=== PATIENT | female | born 1965 | race Caucasian/White ===

== ENCOUNTER → 2016-11-06 | Outpatient (CLI) | payer BC ==
--- NOTE | 2016-11-11 09:18 | MM ---
Reason for exam: screening (asymptomatic). Last mammogram was performed 2 years and 4 months ago. Physical Findings: A clinical breast exam by your physician is recommended on an annual basis and results should be correlated with mammographic findings. MG Screening Mammo w CAD Bilateral CC and MLO view(s) were taken. Prior study comparison: July 04, 2014, bilateral MG screening mammo w CAD. January 13, 2010, bilateral digital screening mammogram. The breast tissue is heterogeneously dense. This may lower the sensitivity of mammography. No significant changes when compared with prior studies. ASSESSMENT: Benign, BI-RAD 2 RECOMMENDATION: Routine screening mammogram of both breasts in 1 year.
== END | disposition home or self-care (01) ==
LOC: RADMAMWWP 13:20
PROVIDERS: ATTEND Family Medicine
DX: Z12.31 Encounter for screening mammogram for malignant neoplasm of breast (principal)

== ENCOUNTER → 2017-02-03 | Outpatient (CLI) | payer BC ==
--- NOTE | 2017-02-04 07:07 | XR ---
EXAMINATION TYPE: XR finger LT DATE OF EXAM: 02/03/2017 4:17 PM COMPARISON: NONE HISTORY: Pain TECHNIQUE: Two views are submitted. FINDINGS: The osseous structures are intact. There is perinephric. No erosive changes. Mild narrowing first MCP joint. IMPRESSION: 1. No definite acute fracture or dislocation if symptoms persist, follow-up study in 7 to 10 days wo uld be suggested 2. Arthropathy of the first MCP and carpometacarpal joint correlate with MRI as clinically warranted.
--- NOTE | 2017-02-04 07:08 | XR ---
EXAMINATION TYPE: XR toes LT DATE OF EXAM: 02/03/2017 4:17 PM COMPARISON: NONE HISTORY: Pain TECHNIQUE: 2 views of the left toes are submitted. FINDINGS: There is near complete loss of joint space involving the first MTP with hypertrophic change . No acute fracture. No dislocation. Remaining osseous structures intact. IMPRESSION: 1. 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
== END ==
LOC: RADXRYALE 15:49
PROVIDERS: ATTEND Family Medicine
DX: M19.042 Primary osteoarthritis, left hand (principal); M19.072 Primary osteoarthritis, left ankle and foot

== ENCOUNTER → 2017-09-10 | Outpatient (CLI) | payer BC ==
--- NOTE | 2017-09-10 15:28 | US ---
EXAMINATION TYPE: US transvaginal DATE OF EXAM: 09/10/2017 COMPARISON: 01/13/2010 CLINICAL HISTORY: D25.9 Leiomyoma of uterus,N84.1Cervixpolyp,N85.2Hy. History of uterine fibroids TECHNIQUE: Transvaginal (TV) Date of LMP: 3 years ago EXAM MEASUREMENTS: Uterus: 13.8 x 8.2 x 9.7 cm Endometrial Stripe: 0.6 cm Right Ovary: 4.6 x 2.8 x 2.4 cm Left Ovary: 3.1 x 2.6 x 2.4 cm 1. Uterus: Anteverted enlarged. Heterogeneous with multiple hypoechoic areas noted, largest = 8.6 x 7.0 x 7.6cm. Hypoechoic area cervix = 2.5 x 2.4 x 2.1cm 2. Endometrium: appears wnl 3. Right Ovary: appears wnl 4. Left Ovary: cystic area = 1.8 x 2.1 x 1.7cm 5. Bilateral Adnexa: appears wnl 6. Posterior cul-de-sac: wnl IMPRESSION: 1. Enlarged uterus with heterogeneous myometrium and multiple hypoechoic nodules the largest measurin g 8.6 cm suggestive of a uterine fibroid. 2. Nonspecific hypoechoic area within the cervix and endocervical region measuring 2.5 cm. Correlate clinically to exclude endocervical lesion. 3. complex cyst within the left ovary measuring 1.8 cm x 2.1 cm. Differential includes hemorrhagic cy st or endometrioma. Appears reduced in size from the previous exam of 3.3 x 3.4 cm.
== END | disposition home or self-care (01) ==
LOC: RADUSWWP 14:34
PROVIDERS: ATTEND Family Medicine
DX: N85.2 Hypertrophy of uterus (principal); N83.202 Unspecified ovarian cyst, left side; N85.8 Other specified noninflammatory disorders of uterus
CPT/HCPCS: 76830

== ENCOUNTER → 2018-06-21 | Outpatient (CLI) | payer BC ==
--- NOTE | 2018-06-21 16:02 | CT ---
EXAMINATION TYPE: CT iac wo con DATE OF EXAM: 06/21/2018 COMPARISON: None HISTORY: Hearing loss and ear infections. CT DLP: 228mGycm Automated exposure control for dose reduction was used. FINDINGS: The external auditory canals are patent bilaterally. The middle ear ossicles are symmetric and unremarkable. No suspicious soft tissue densities evident. The scutum is preserved bilaterally. The cochlea and the semicircular canals are symmetric and unre markable. The internal auditory canals are symmetrical. No expansion or erosion is evident. Vestibular aqueduct and foramen lacerum are unremarkable. Temporomandibular joints are maintained bi laterally. Some minimal fluid is within the inferior most left mastoid air cells. IMPRESSION: 1. No suspicious changes internal auditory canals. 2. Minimal fluid-filled left mastoid air cells. Correlate with the patient's symptoms.
== END | disposition home or self-care (01) ==
LOC: RADCTMAIN 15:02
PROVIDERS: ATTEND Otolaryngology
DX: H91.93 Unspecified hearing loss, bilateral (principal); H71.93 Unspecified cholesteatoma, bilateral; H70.93 Unspecified mastoiditis, bilateral
CPT/HCPCS: 70480

== ENCOUNTER → 2018-06-29 | Outpatient (CLI) | payer BC | END | disposition home or self-care (01) | LOC: LABWHC1 08:45 | PROVIDERS: ATTEND Otolaryngology | DX: J30.89 Other allergic rhinitis (principal) | CPT/HCPCS: 36415 ==

== ENCOUNTER → 2018-11-18 | Outpatient (CLI) | payer BC ==
[2018-11-18 11:16] LABS: Basophils % (A) 0 %; Eosinophils # (A) 0.2 k/uL (0-0.7); Eosinophils % (A) 3 %; HCT 45.2 % (34.0-46.0); HGB 14.1 gm/dL (11.4-16.0); Lymphocytes # (A) 1.8 k/uL (1.0-4.8); Lymphocytes % (A) 28 %; MCH 29.8 pg (25.0-35.0); MCHC 31.2 g/dL (31.0-37.0); MCV 95.5 fL (80.0-100.0); Mean Platelet Volume 5.9; Monocytes # (A) 0.6 k/uL (0-1.0); Monocytes % (A) 10 %; Neutrophils # (A) 3.8 k/uL (1.3-7.7); Neutrophils % (A) 58 %; Platelet Count 311 k/uL (150-450); RBC 4.73 m/uL (3.80-5.40); RDW 12.6 % (11.5-15.5); WBC 6.5 k/uL (3.8-10.6)
[2018-11-18 11:26] LABS: Anion Gap 7 mmol/L; Blood Urea Nitrogen 20 mg/dL (7-17); Calcium 10.1 mg/dL (8.4-10.2); Carbon Dioxide 27 mmol/L (22-30); Chloride 105 mmol/L (98-107); Glucose 97 mg/dL (74-99); Potassium 4.8 mmol/L (3.5-5.1); Sodium 139 mmol/L (137-145)
== END | disposition home or self-care (01) ==
LOC: LABPAT 10:27
PROVIDERS: ATTEND Obstetrics & Gynecology
DX: Z01.818 Encounter for other preprocedural examination (principal); Z01.812 Encounter for preprocedural laboratory examination
CPT/HCPCS: 80048; 85025; 86850; 86900; 86901; 93005

== ENCOUNTER → 2018-11-25 | Outpatient (CLI) | payer BC ==
--- NOTE | 2018-11-28 11:57 | MM ---
Reason for exam: screening (asymptomatic). Last mammogram was performed 2 years and 1 month ago. History: Patient is postmenopausal. Taking estrogen for 10 years. Taking progesterone for 10 years. Physical Findings: A clinical breast exam by your physician is recommended on an annual basis and results should be correlated with mammographic findings. MG 3D Screening Mammo W/Cad Bilateral CC and MLO view(s) were taken. Prior study comparison: November 06, 2016, bilateral MG screening mammo w CAD. July 04, 2014, bilateral MG screening mammo w CAD. The breast tissue is heterogeneously dense. This may lower the sensitivity of mammography. No suspicious abnormality. No significant changes when compared with prior studies. ASSESSMENT: Negative, BI-RAD 1 RECOMMENDATION: Routine screening mammogram of both breasts in 1 year.
== END | disposition home or self-care (01) ==
LOC: RADMAMWWP 15:11
PROVIDERS: ATTEND Family Medicine
DX: Z12.31 Encounter for screening mammogram for malignant neoplasm of breast (principal)
CPT/HCPCS: 77063; 77067

== ENCOUNTER 2018-11-28 05:44 | Inpatient (IN) | payer BC ==
--- NOTE | 2018-11-27 19:57 | P.HPOB ---
History of Present Illness H&P Date: 11/27/18 Chief Complaint: Uterine fibroids, pelvic pain This is a 52-year-old female 1 para 1 who presents for total abdominal hysterectomy with bilateral salpingo-oophorectomy secondary to large uterine fibroids and pelvic pressure and pain. She complains of approximate 6 month history of pelvic pressure and held thick pain in the left pelvic area. She denies any radiation. She states it is worse when she gets up in the morning to urinate but is better after she urinates. She occasionally has urinary urgency. Her pelvic ultrasound shows uterus measuring 13.8 x 8.2 x 9.7 cm with endometrial thickness of 6 mm and a large uterine fibroid measuring 8.6 x 7 x 7.6 cm. Left ovary showed a small 2 cm cyst. The fibroids are consistent in size from her previous ultrasound in 2015. She would like definitive surgical treatment for this problem and would like her ovaries removed in addition. Obstetrical history: . History of 1 vaginal delivery. Gynecologic history: No history of sexual transmitted diseases. Her last Pap smear was within normal limits. Social history: She is . 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 Review of Systems Constitutional: Denies chills, Denies fever Eyes: denies blurred vision, denies pain Ears, nose, mouth and throat: Denies headache, Denies sore throat Cardiovascular: Denies chest pain, Denies shortness of breath Respiratory: Denies cough Gastrointestinal: Denies abdominal pain, Denies diarrhea, Denies nausea, Denies vomiting Genitourinary: Reports pelvic pain, Reports urgency Menstruation: Reports postmenopausal Musculoskeletal: Denies myalgias Integumentary: Denies pruritus, Denies rash Neurological: Denies numbness, Denies weakness Psychiatric: Denies anxiety, Denies depression Endocrine: Denies fatigue, Denies weight change Past Medical History Past Medical History: GERD/Reflux, Thyroid Disorder Additional Past Medical History / Comment(s): UTERINE FIBROIDS. History of Any Multi-Drug Resistant Organisms: None Reported Additional Past Surgical History / Comment(s): PLANTAR FASCITIS (JANUARY 2018) Past Anesthesia/Blood Transfusion Reactions: No Reported Reaction Past Psychological History: No Psychological Hx Reported Smoking Status: Never smoker Past Alcohol Use History: Occasional Past Drug Use History: None Reported - Past Family History Mother Family Medical History: CVA/TIA, Hypertension Medications and Allergies Home Medications Medication Instructions Recorded Confirmed Type Ascorbic Acid [Vitamin C] 1,000 mg PO DAILY 11/24/18 11/24/18 History Estradiol 8 mg PO BID 11/24/18 11/24/18 History Iodine 10,000 mcg PO DAILY 11/24/18 History Niacin (Inositol Niacinate) 500 mg PO DAILY 11/24/18 11/24/18 History [Niacin 500 mg Capsule] Pregnenolone 160 mg PO DAILY 11/24/18 History Progesterone, Micronized 250 mg PO DAILY 11/24/18 11/24/18 History [Progesterone] Thyroid,Pork [[place] Thyroid] 180 mg PO Q48H 11/24/18 11/24/18 History Thyroid,Pork [[place] Thyroid] 270 mg PO Q48H 11/24/18 11/24/18 History Vitamin D (Unknown Dose) 1 tab PO DAILY 11/24/18 History Allergies Allergy/AdvReac Type Severity Reaction Status Date / Time No Known Allergies Allergy Verified 11/24/18 10:52 Exam Osteopathic Statement: *. No significant issues noted on an osteopathic structural exam other than those noted in the History and Physical/Consult. HEENT: Within normal limits Heart: Regular rate and rhythm Lungs: Clear to auscultation bilaterally Abdomen: Soft, nontender Pelvic exam: Uterus is enlarged to approximate 14 weeks size and nodular more so on the left side. No adnexal masses or tenderness are noted. Extremities: Negative Homans Assessment and Plan (1) Uterine fibroid Status: Acute Code(s): D25.9 - LEIOMYOMA OF UTERUS, UNSPECIFIED SNOMED Code( s): 46622566 (2) Pelvic pain Status: Acute Code(s): R10.2 - PELVIC AND PERINEAL PAIN SNOMED Code(s): 18201391 Plan: Proceed with total abdominal hysterectomy with bilateral salpingo-oophorectomy. I have discussed the risks, benefits, and alternative therapies for the above- mentioned procedure and for both sedation/anesthesia as well as necessary blood products administration, if indicated, as they pertain to this patient. The patient has indicated her understanding and acceptance of the risks and procedures discussed.
[~2018-11-28 05:44] MED LIST: DEXAMETHASONE SOD PHOSPHATE 10 MG/ML 1 ML VIAL IV ONE; HYDROmorphone 0.5 MG/0.5 ML SYRINGE IVP PRN; LACTATED RINGERS 1,000 ML IV SCH; MIDAZOLAM (PF) 2 MG/2 ML VIAL IV PRN; ONDANSETRON 4 MG/2 ML VIAL IVP ONE; SCOPOLAMINE 1.5MG/72HR PATCH TRANSDERM ONE
[2018-11-28] MEDS ORDERED: MIDAZOLAM 2 MG/2 ML VIAL IV ONE (06:45)
[2018-11-28] MEDS ORDERED: fentaNYL (PF) 50 MCG/ML 2 ML AMP IV ONE (06:45)
[2018-11-28] MEDS ORDERED: NALOXONE 0.4 MG/ML 1 ML VIAL IV PRN (07:24)
[2018-11-28] MEDS ORDERED: NALBUPHINE 10 MG/ML (1 ML AMP) IV PRN (07:24)
[2018-11-28] MEDS ORDERED: ONDANSETRON 4 MG/2 ML VIAL IVP PRN (07:24)
[2018-11-28] MEDS ORDERED: ROCURONIUM BROMIDE 10 MG/ML 10 ML VIAL IV ONE (07:33)
[2018-11-28] MEDS ORDERED: ceFAZolin IN SWFI 2 GM/20 ML SYRINGE IVP STA (07:33)
[2018-11-28] MEDS ORDERED: PROPOFOL 10 MG/ML 20 ML VIAL IV ONE (07:33)
[2018-11-28] MEDS ORDERED: fentaNYL (PF) 50 MCG/ML 2 ML AMP ONE (07:33)
[2018-11-28] MEDS ORDERED: NEOSTIGMINE 1 MG/ML 10 ML VIAL ONE (07:33)
[2018-11-28] MEDS ORDERED: MIDAZOLAM 2 MG/2 ML VIAL ONE (07:33)
[2018-11-28] MEDS ORDERED: LIDOCAINE 1% INJ 10MG/ML (20 ML MDV) ONE (07:33)
[2018-11-28] MEDS ORDERED: MORPHINE SULFATE (PF) 0.3 MG/0.3 ML SYR ONE (07:33)
[2018-11-28] MEDS ORDERED: GLYCOPYRROLATE 0.2 MG/ML 2 ML VIAL ONE (07:33)
--- NOTE | 2018-11-28 09:00 | P.OP ---
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 She complains of approximate 6 month history of pelvic pressure and held thick pain in the left pelvic area. She denies any radiation. She states it is worse when she gets up in the morning to urinate but is better after she urinates. She occasionally has urinary urgency. Her pelvic ultrasound shows uterus measuring 13.8 x 8.2 x 9.7 cm with endometrial thickness of 6 mm and a large uterine fibroid measuring 8.6 x 7 x 7.6 cm. Left ovary showed a small 2 cm cyst. The fibroids are consistent in size from her previous ultrasound in 2015. She would like definitive surgical treatment for this problem and would like her ovaries removed in addition. Operative Findings: Uterus is large and bulky with multiple large fibroids, approximately 14 weeks' size. Normal tubes and ovaries are noted. Description of Procedure: The patient is taken to the operating room where she is placed in the dorsal supine position. She is prepped and draped in the normal sterile fashion including Larkin catheter insertion and vaginal prep. A Pfannenstiel skin incision is made with a scalpel. A second knife was used to carry the incision down to the underlying layer of fascia. The fascia was nicked in the midline with a scalpel and then extended laterally bilaterally with Lubin scissors. The superior aspect of the fascial incision was grasped with Casper clamps, elevated off the underlying rectus muscle in the midline and then cut with Lubin scissors. The inferior aspect of the fascial incision was grasped with Casper clamps, elevated off the underlying rectus muscle in the midline and then cut with Lubin scissors. Next the peritoneum was identified and entered sharply with Lubin scissors. It is extended superiorly and in fairly with Metzenbaum scissors with good visualization of underlying structures. Next the Amaris retractor is placed in the bladder blade was inserted. The bowels were packed with a 3 yard laparotomy sponge. Next the uterus is brought up incision and the corneal regions are grasped with Veronica clamps on both sides. The infundibulopelvic ligament was clamped on the right side with a Shaka clamp, cut with Lubin scissors, and sutured with 0 Vicryl suture in Shaka transfixion stitches. The right tube and ovary was then amputated for better visualization. The left ovary was adherent posteriorly and therefore the uterine ovarian ligament was clamped with a Shaka clamp, cut with Lubin scissors and then stitched with 0 Vicryl suture in Shaka transfixion stitch. The remaining uterine ovarian ligament and round ligament was clamped on either side with a Shaka clamp, cut with Lubin scissors, and sutured with 0 Vicryl suture in Shaka transfixion stitches. The vesicouterine peritoneum was sharply dissected away from the bladder with Metzenbaum scissors and pushed inferiorly. The uterine arteries are clamped on either side with a Shaka clamp. The uterine arteries are then cut with Lubin scissors, and sutured with 0 Vicryl suture in Shaka transfixion stitches. Next the cardinal ligaments were clamped on either side with Shaka clamp, cut with Lubin scissors, and sutured with 0 Vicryl suture in Shaka transfixion stitches. The uterosacral ligaments are clamped on either side with Shaka clamps, cut with Lubin scissors , and sutured with 0 Vicryl suture in Shaka transfixion stitches on either side. The edges of the vaginal cuff were clamped on either side with a Shaka clamp, cut with Lubin scissors, and sutured with 0 Vicryl suture in Shaka transfixion stitches and held on either side. The vaginal mucosa was then cut just below the level of the cervix and the specimen is removed from the field. The edges of the vaginal cuff were held with Casper clamps. Next the previously held corners of each side of the vaginal cuff were then whipstitched along the connective tissue on either side and brought through the corner of the cuff and tied. Next the vaginal cuff was sutured with 0 Vicryl suture in a running locked fashion. Good hemostasis was noted. Next the right ovary and tube were bluntly dissected away from the posterior wall with fingers and then the infundibulopelvic ligament on this side was clamped with a Shaka clamp, cut with Lubin scissors, and sutured with 0 Vicryl suture in a Shaka transfixion stitch. The remaining pedicle was then clamped with a Shaka clamp , cut with Lubin scissors, and sutured with 0 Vicryl suture in a [id number] stitch. The left tube and ovary were then sent separately. Copious irrigation is carried out with warm saline. Excellent hemostasis is noted. All sponges are removed from the abdomen and sponge counts are correct. The peritoneum is then closed with 0 Vicryl suture in a running fashion. The muscle was then reapproximated with 0 Vicryl suture in interrupted fashion. The fascia layer is then closed with 0 PDS suture in a running fashion with the knots buried on either side and in the midline. Next the subcutaneous tissues closed with 2-0 Vicryl suture in a running fashion. The skin is closed with alee. All sponge and needle counts are correct and the patient is taken to recovery room in stable condition.
[2018-11-28 09:25] VITALS: RESP 16
[2018-11-28] MEDS ORDERED: LACTATED RINGERS 1,000 ML IV ONE ×2 (09:45)
[2018-11-28] MEDS ORDERED: diphenhydrAMINE 50 MG/ML 1 ML VIAL IVP PRN (10:27)
[2018-11-28] MEDS ORDERED: HYDROcodone/APAP 7.5-325MG 1 EACH TAB PO PRN (10:27)
[2018-11-28] MEDS ORDERED: ZOLPIDEM 5 MG TAB PO PRN (10:27)
[2018-11-28] MEDS: KETOROLAC 30 MG/ML 1 ML VIAL IVP PRN ×2 (10:34→17:43)
[2018-11-28 10:54] VITALS: BMI 27.8
[2018-11-28] MEDS: SENNOSIDES-DOCUSATE SODIUM 1 EACH TAB PO SCH ×2 (10:59→20:46)
[2018-11-28] MEDS: LACTATED RINGERS 1,000 ML IV SCH (17:41)
[2018-11-28] MEDS: HYDROcodone/APAP 5-325MG 1 EACH TAB PO PRN (20:50)
[2018-11-29] MEDS: KETOROLAC 30 MG/ML 1 ML VIAL IVP PRN ×2 (03:49→09:45)
[2018-11-29] MEDS: LACTATED RINGERS 1,000 ML IV SCH ×2 (03:50→11:35)
[2018-11-29] MEDS: HYDROcodone/APAP 5-325MG 1 EACH TAB PO PRN ×3 (06:15→19:50)
[2018-11-29] MEDS ORDERED: THYROID, PORK 30 MG TAB PO SCH (06:30)
--- NOTE | 2018-11-29 07:13 | P.PN ---
Progress Note - Text Progress Note Date: 11/29/18 Patient's postop day 1 from a VIVIANE with Duramorph spinal. She is doing well. She is able to ambulate. Normal lower extremities, no lower extremity numbness or tingling. Bowel and bladder function have returned normal. Site is clean and dry. This decision will sign off please contact us if she had any issues or questions.
--- NOTE | 2018-11-29 09:06 | P.PN ---
Subjective Progress Note Date: 11/29/18 Principal diagnosis: Status post VIVIANE/BSO postoperative day #1 Patient is doing well. She is ambulating. She has not passed flatus or bowel movement yet. Her catheter was just removed this morning and she has not urinated yet. Her pain is fairly well controlled. Objective - Vital Signs Vital signs: Vital Signs Temp 97.3 F L 11/29/18 07:51 Pulse 63 11/29/18 07:51 Resp 16 11/29/18 07:51 BP 109/72 11/29/18 07:51 Pulse Ox 96 11/29/18 07:51 Intake & Output 11/28/18 11/29/18 11/29/18 18:59 06:59 18:59 Intake Total 770 1400 Output Total 9784 113 8458 Balance -280 900 -1000 Intake: IV 650 Oral 120 1400 Output: Urine 570 313 7933 Uretheral (Larkin) 500 Estimated Blood Loss 250 Other: Voiding Method Indwelling Catheter Indwelling Catheter Toilet - Constitutional General appearance: Present: no acute distress - Gastrointestinal Gastrointestinal Comment(s): Incision is clean dry and intact with alee in place. Very scant bleeding is noted on her alix-pad. General gastrointestinal: Present: normal bowel sounds, soft. Absent: tenderness - Musculoskeletal Musculoskeletal Comment(s): Negative Homans Assessment and Plan Assessment: Status post VIVIANE/BSO postoperative day #1 (1) Uterine fibroid Current Visit: No Status: Acute Code(s): D25.9 - LEIOMYOMA OF UTERUS, UNSPECIFIED SNOMED Code(s): 51040755 (2) Pelvic pain Current Visit: No Status: Acute Code(s): R10.2 - PELVIC AND PERINEAL PAIN SNOMED Code(s): 97530882 Plan: Continue with postoperative care today. We will switch to oral pain medications today. Encouraged ambulation.
[2018-11-29 09:15] LABS: Basophils % (A) 0 %; Eosinophils # (A) 0.1 k/uL (0-0.7); Eosinophils % (A) 1 %; HGB 11.7 gm/dL (11.4-16.0); Lymphocytes # (A) 1.7 k/uL (1.0-4.8); Lymphocytes % (A) 22 %; MCH 30.7 pg (25.0-35.0); MCHC 32.4 g/dL (31.0-37.0); MCV 94.7 fL (80.0-100.0); Mean Platelet Volume 6.7; Monocytes # (A) 0.6 k/uL (0-1.0); Monocytes % (A) 8 %; Neutrophils % (A) 67 %; Platelet Count 303 k/uL (150-450); RDW 12.9 % (11.5-15.5); WBC 7.5 k/uL (3.8-10.6)
[2018-11-29] MEDS: SENNOSIDES-DOCUSATE SODIUM 1 EACH TAB PO SCH ×2 (09:18→19:50)
[2018-11-29] MEDS ORDERED: diphenhydrAMINE 25 MG CAP PO PRN (15:24)
[2018-11-29] MEDS: IBUPROFEN 600 MG TAB PO PRN (16:34)
[2018-11-30] MEDS: HYDROcodone/APAP 5-325MG 1 EACH TAB PO PRN (06:29)
[2018-11-30] MEDS ORDERED: THYROID, PORK 30 MG TAB PO SCH (06:30)
[2018-11-30 08:09] VITALS: TEMP 98.1
[2018-11-30] MEDS ORDERED: Acetaminophen-Codeine 300-30mg TAB PO PRN (08:43)
--- NOTE | 2018-11-30 08:46 | P.PN ---
Subjective Progress Note Date: 11/30/18 Principal diagnosis: Status post VIVIANE/BSO postoperative day #2 Patient is passing flatus but only small amounts. No bowel movement yet. She does not feel that the [place] is even helping her at all. Her pain is okay while she is lying in bed but when she gets up moving it does increase significantly. Minimal bleeding is noted. Objective - Vital Signs Vital signs: Vital Signs Temp 98.1 F 11/30/18 07:37 Pulse 78 11/30/18 07:37 Resp 16 11/30/18 07:37 BP 132/78 11/30/18 07:37 Pulse Ox 96 11/30/18 07:37 Intake & Output 11/29/18 11/30/18 11/30/18 18:59 06:59 18:59 Intake Total 120 940 Output Total 2600 Balance -2480 940 Intake: Oral 120 940 Output: Urine 2600 Uretheral (Larkin) 500 Other: Voiding Method Toilet - Constitutional General appearance: Present: no acute distress - Gastrointestinal Gastrointestinal Comment(s): Incision is clean dry and intact with minimal tenderness noted. Edna are in place. General gastrointestinal: Present: normal bowel sounds, soft - Genitourinary Genitourinary Comment(s): Monie pad shows no bleeding - Labs CBC & Chem 7: 11/29/18 08:01 Assessment and Plan (1) Uterine fibroid Current Visit: No Status: Acute Code(s): D25.9 - LEIOMYOMA OF UTERUS, UNSPECIFIED SNOMED Code(s): 47985478 (2) Pelvic pain Current Visit: No Status: Acute Code(s): R10.2 - PELVIC AND PERINEAL PAIN SNOMED Code(s): 42651121
[2018-11-30] MEDS: SIMETHICONE 80 MG CHEWABLE PO PRN ×2 (08:59→14:46)
[2018-11-30] MEDS: SENNOSIDES-DOCUSATE SODIUM 1 EACH TAB PO SCH (09:00)
[2018-11-30] MEDS: IBUPROFEN 600 MG TAB PO PRN (09:00)
[2018-11-30] MEDS: Acetaminophen-Codeine 300-30mg TAB PO PRN ×2 (10:37→14:47)
--- NOTE | 2018-11-30 12:55 | P.DS ---
Providers Date of admission: 11/28/18 05:44 Attending physician: Tracy Grider Primary care physician: Eduar Roy - Discharge Diagnosis(es) (1) Uterine fibroid Current Visit: No Status: Acute (2) Pelvic pain Current Visit: No Status: Acute Hospital Course: This is a 52-year-old female who underwent a total abdominal hysterectomy with bilateral salpingo-oophorectomy on 11/28/2018. Postoperatively she has done fairly well. We switched her pain medication from nor co-to Tylenol 3 this morning and she feels this is more effective. She is passing flatus but no bowel movement. She is tolerating a regular diet. She would like to go home today. Vital signs are stable. Abdomen was soft with positive bowel sounds 4. Incision is clean dry and intact with alee in place. Extremities show negative Homans. Impression is status post VIVIANE/BSO postoperative day #2. Plan is to discharge home today. Routine postoperative instructions are given. [place] will be removed and Steri-Strips placed prior to discharge. She will be given a prescription for ibuprofen and Tylenol 3. She has signed a start opioid consent form. She denies taking any other narcotic pain medication. She is advised to follow up in the office in approximately 1 week for a postoperative check. She is advised to call the office if she has any further questions or concerns prior to her appointment time. Procedures: Total abdominal hysterectomy with bilateral salpingo-oophorectomy on 11/28/2018 Patient Condition at Discharge: Stable Plan - Discharge Summary Discharge Rx Participant: Yes New Discharge Prescriptions: New Acetaminophen-Codeine 300-30mg [Tylenol w/codeine #3] 1 - 2 each PO Q4HR PRN #30 tab PRN Reason: Moderate To Severe Pain Ibuprofen [Motrin] 600 mg PO Q6HR PRN #60 tab PRN Reason: Mild Discomfort Continue Thyroid,Pork [[place] Thyroid] 180 mg PO Q48H Thyroid,Pork [[place] Thyroid] 270 mg PO Q48H Niacin (Inositol Niacinate) [Niacin 500 mg Capsule] 500 mg PO DAILY Ascorbic Acid [Vitamin C] 1,000 mg PO DAILY Cholecalciferol [Vitamin D3] 1,000 unit PO DAILY No Action Progesterone, Micronized [Progesterone] 250 mg PO DAILY Pregnenolone 160 mg PO DAILY Iodine 10,000 mcg PO DAILY Estradiol 8 mg PO BID Discharge Medication List Ascorbic Acid [Vitamin C] 1,000 mg PO DAILY 11/24/18 [History] Estradiol 8 mg PO BID 11/24/18 [History] Iodine 10,000 mcg PO DAILY 11/24/18 [History] Niacin (Inositol Niacinate) [Niacin 500 mg Capsule] 500 mg PO DAILY 11/24/18 [ History] Pregnenolone 160 mg PO DAILY 11/24/18 [History] Progesterone, Micronized [Progesterone] 250 mg PO DAILY 11/24/18 [History] Thyroid,Pork [[place] Thyroid] 180 mg PO Q48H 11/24/18 [History] Thyroid,Pork [[place] Thyroid] 270 mg PO Q48H 11/24/18 [History] Cholecalciferol [Vitamin D3] 1,000 unit PO DAILY 11/28/18 [History] Acetaminophen-Codeine 300-30mg [Tylenol w/codeine #3] 1 - 2 each PO Q4HR PRN # 30 tab 11/30/18 [Rx] Ibuprofen [Motrin] 600 mg PO Q6HR PRN #60 tab 11/30/18 [Rx] Follow up Appointment(s)/Referral(s): Tracy Grider DO [Doctor of Osteopathic Medicine] - 1 Week Activity/Diet/Wound Care/Special Instructions: Activity as tolerated. Diet as tolerated. May shower, but no tub baths for 1 week. No intercourse for [address] after off of any narcotic pain medication. No heavy lifting. Discharge Disposition: HOME SELF-CARE
[2018-11-30 13:16] VITALS: BP 127/80; PULSE 83
--- NOTE | 2018-12-01 09:03 | CDI ---
Documentation Clarification Form Date: 12/01/18 From: Carlita Jona Becky Nikky, Crystal Calibrator Hours-8:30 am & 5 pm Albertina Admit Date: 11/28/2018 5:44:00 AM Patient Name: Za Jerry Visit Number: [id number] Discharge Date: 11/30/2018 2:51:00 PM ATTENTION: The Clinical Documentation Specialists (CDI) and [facility] Coding Staff appreciate your assistance in clarifying documentation. Please respond to the clarification below the line at the bottom and electronically sign. The CDI & [facility] Coding staff will review the response and follow-up if needed. Please note: Queries are made part of the Legal Health Record. If you have any questions, please contact the author of this message via ITS. Dr. 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 Surgical pathology cancer comment: pT1 Documentation states: Total abdominal hysterectomy w BSO due to fibroids. In your professional opinion, do you agree with the pathology report specifying granulosa cell tumor of ovary? Yes, malignant Yes, not malignant No Other (please specify) Unable to determine I will not dispute the pathologists reading. If they stated that there is a tumor of the ovary, I will agree. The tumor size was only 8 mm and was not visible with the naked eye during surgery. According to pathology the tumor is a malignant tumor. [facility]
== END 2018-11-30 14:51 | disposition home or self-care (01) | DRG 742 ==
LOC: 2ORMAIN 05:44 → EDSTATUS 07:30 → 6PED 09:22
PROVIDERS: ADMIT Obstetrics & Gynecology; ATTEND Obstetrics & Gynecology
PROC: 0UTC0ZZ Resection of Cervix, Open Approach (ICD-10-PCS; 2018-11-28)
PROC: 0UT20ZZ Resection of Bilateral Ovaries, Open Approach (ICD-10-PCS; 2018-11-28)
PROC: 0UT70ZZ Resection of Bilateral Fallopian Tubes, Open Approach (ICD-10-PCS; 2018-11-28)
PROC: 0UT90ZZ Resection of Uterus, Open Approach (ICD-10-PCS; principal; 2018-11-28 07:30)
DX: D25.9 Leiomyoma of uterus, unspecified (principal); C56.2 Malignant neoplasm of left ovary; R39.15 Urgency of urination; K21.9 Gastro-esophageal reflux disease without esophagitis; E07.9 Disorder of thyroid, unspecified; Z79.890 Hormone replacement therapy; Z79.899 Other long term (current) drug therapy; Z98.890 Other specified postprocedural states; Z82.49 Family history of ischemic heart disease and other diseases of the circulatory system; Z82.3 Family history of stroke
CPT/HCPCS: 85025; 86850; 86900; 86901; 88309; 88341; 88342

== ENCOUNTER → 2018-12-30 | Outpatient (CLI) | payer BC ==
--- NOTE | 2018-12-30 12:25 | CT ---
EXAMINATION TYPE: CT ChestAbdPelvis w con DATE OF EXAM: 12/30/2018 COMPARISON: NONE HISTORY: Ovarian cancer. CT DLP: 937.2 mGycm. Automated Exposure Control for Dose Reduction was Utilized. CONTRAST: CT scan of the thorax, abdomen and pelvis is performed with IV Contrast, patient injected with 100 mL of Isovue M300. FINDINGS: LUNGS: The lungs are grossly clear, there is no concerning parenchymal mass or nodule identified. T here is no pleural effusion or pneumothorax seen. The tracheobronchial tree is patent. MEDIASTINUM: There are no greater than 1 cm hilar or mediastinal lymph nodes. No pericardial effusi on is seen. LIVER/GB: No liver parenchymal invasion or subserosal implants are seen along the hepatic surface. No suspicious hepatic lesions are seen.. PANCREAS: No significant abnormality is seen. No ductal dilatation. SPLEEN: No significant abnormality is seen. ADRENALS: No nodularity or thickening. KIDNEYS: Kidneys enhance and excrete symmetrically without hydronephrosis. BOWEL: No dilated large or small bowel. Some probable colonic spasm is seen within the right hemicol on. GENITAL ORGANS: Uterus and presumably both ovaries are surgically absent. LYMPH NODES: No greater than 1cm abdominal or pelvic lymph nodes are appreciated. OSSEOUS STRUCTURES: Minimal degenerative changes of the spine are noted. OTHER: No peritoneal implants are identified. IMPRESSION: No findings of metastasis within the chest, abdomen, or pelvis.
[2019-01-01 18:44] LABS: Inhibin B <10 pg/mL
== END | disposition home or self-care (01) ==
LOC: RADCTMAIN 09:21
PROVIDERS: ATTEND Obstetrics & Gynecology
DX: C56.9 Malignant neoplasm of unspecified ovary (principal)
CPT/HCPCS: 82670; 86336; 83520; 71260; 74177; 36415; Q9967

== ENCOUNTER → 2019-11-06 | Outpatient (CLI) | payer BC ==
--- NOTE | 2019-11-06 10:59 | CT ---
EXAMINATION TYPE: CT abdomen pelvis w con DATE OF EXAM: 11/06/2019 HISTORY: Right ovarian cancer CT DLP: 913.60mGycm Automated Exposure Control for Dose Reduction was Utilized. CONTRAST: CT scan of the abdomen and pelvis is performed with oral and with IV Contrast, patient injected with 100 ml mL of Isovue 300. COMPARISON: CT December 30, 2018 FINDINGS: LUNG BASES: No significant abnormality is appreciated. LIVER/GB: No significant abnormality is appreciated. PANCREAS: No significant abnormality is seen. SPLEEN: No significant abnormality is seen. ADRENALS: No significant abnormality is seen. KIDNEYS: No significant abnormality is seen. BOWEL: Oral contrast nearly reaches level of the hepatic flexure. No suspicious small or large bowel dilatation. [id number] prominence of fecal material throughout the colon is seen. UTERUS/ADNEXA: Uterus is surgically absent. LYMPH NODES: No greater than 1cm abdominal or pelvic lymph nodes are appreciated. OSSEOUS STRUCTURES: Moderate to severe disc space narrowing and vacuum disc phenomenon lumbosacral ju nction redemonstrated. Mild to moderate narrowing of both hip joints. OTHER: No significant additional abnormality is seen. IMPRESSION: No suspicious new mass or adenopathy to suggest neoplastic recurrence. Proximal mild-to-m oderate diffuse colonic fecal stasis, correlate clinically. Overall nonobstructive bowel gas pattern.
== END | disposition home or self-care (01) ==
LOC: RADCTMAIN 07:58
PROVIDERS: ATTEND Obstetrics & Gynecology
DX: K59.8 Other specified functional intestinal disorders (principal); C56.1 Malignant neoplasm of right ovary
CPT/HCPCS: 86304; 86336; 83520; 74177; 36415; Q9967

== ENCOUNTER → 2020-03-21 | Outpatient (CLI) | payer BC ==
[2020-03-26 18:13] LABS: Inhibin B <10 pg/mL
== END | disposition home or self-care (01) ==
LOC: LABWHC1 11:05
PROVIDERS: ATTEND Obstetrics & Gynecology
DX: D39.10 Neoplasm of uncertain behavior of unspecified ovary (principal)
CPT/HCPCS: 36415; 83520; 86304; 86336

== ENCOUNTER → 2020-07-17 | Outpatient (CLI) | payer BC ==
--- NOTE | 2020-07-17 15:50 | CT ---
EXAMINATION TYPE: CT abdomen pelvis w con DATE OF EXAM: 07/17/2020 COMPARISON: 11/06/2019 INDICATION: Follow up right ovarian cancer. DLP: 881.8 mGycm, Automated exposure control for dose reduction was used. CONTRAST: 100 mL of Isovue 300. Study performed with Oral Contrast TECHNIQUE: Axial images were obtained from above the diaphragm to the pubic rami in the axial plane a t 5 mm thick sections. Reconstructed images are reviewed on the computer in the coronal plane. FINDINGS: Limited CT sections are obtained the lung bases. The lung bases are clear. CT ABDOMEN: Liver: Normal Spleen: Normal Pancreas: Normal Adrenal glands: The adrenal glands are normal. Gallbladder: Normal Kidneys: No masses are evident. No hydronephrosis is present. No cysts are present. Delayed images were obtained through the kidneys, which remain unremarkable. Aorta: Normal Inferior vena cava: Normal. CT PELVIS: No omental caking is evident. No peritoneal studding is identified. No significant intrape ritoneal fluid collections are evident. Loops of bowel within the abdomen and pelvis are normal. There are loops of bowel which are incom pletely distended or lack oral contrast limiting their evaluation. Appendix: Normal as visualized. Urinary bladder: Normal. Genitourinary structures: Uterus is not identified. Ovaries appear to be absent. No suspicious recurr ent cysts or masses within the adnexal regions are evident. No free fluid is within the pelvis. Osseous structures: No suspicious lytic or sclerotic lesions. Sacroiliac joint and L5-S1 disc space v acuum phenomenon is present. IMPRESSIONS: 1. No suspicious changes to suggest recurrent ovarian cancer
== END | disposition home or self-care (01) ==
LOC: RADCTMAIN 07:13
PROVIDERS: ATTEND Obstetrics & Gynecology
DX: C56.9 Malignant neoplasm of unspecified ovary (principal)
CPT/HCPCS: 74177; Q9967

== ENCOUNTER → 2021-06-02 | Outpatient (CLI) | payer BC ==
--- NOTE | 2021-06-02 14:03 | BD ---
EXAMINATION TYPE: Axial Bone Density DATE OF EXAM: 06/02/2021 COMPARISON: NONE CLINICAL HISTORY: Height: 65 IN Weight: 186 LBS RISK FACTORS HISTORY OF: Active: YES Diet low in dairy products/other sources of calcium: YES Postmenopausal woman: TOTAL HYST AGE 48 Take estrogen and/or progesterone medications: YES How lon YEARS MEDICATIONS: Thyroid Medications: YES Which medication: Levothyroxine How Lon + YEARS Additional Medications: CALCIUM, VIT D, ERT, LEVOTHYROXINE,VIT C, MULTI VIT, FISH OIL Additional History: OVARIAN CANCER EXAM MEASUREMENTS: Bone mineral densitometry was performed using the [employer] System. Bone mineral density as measured about the Lumbar spine is: ----- L1-L4(G/cm2): 1.215 T Score Values are as follows: ----- L2: 0.1 ----- L3: 1.0 ----- L4: 0.4 ----- L1-L4: 0.3 Bone mineral density BASELINE Bone mineral density about the R hip (g/cm2): 1.122 Bone mineral density about the L hip (g/cm2): 1.152 T Score values are as follows: -----R Neck: 0.6 -----L Neck: 0.8 -----R Total: 1.4 -----L Total: 1.2 Bone mineral density BASELINE IMPRESSION: Normal (Values between +1 and -1 indicate normal bone mass). Consider repeating this study in 5 year s or sooner if there is some new clinical indication. NOTE: T-SCORE=SD OF THE YOUNG ADULT MEAN.
--- NOTE | 2021-06-03 09:22 | MM ---
Reason for exam: screening (asymptomatic). Last mammogram was performed 2 years and 6 months ago. History: Patient is postmenopausal. Taking estrogen for 10 years. Taking progesterone for 10 years. Physical Findings: A clinical breast exam by your physician is recommended on an annual basis and results should be correlated with mammographic findings. MG 3D Screening Mammo W/Cad Bilateral CC and MLO view(s) were taken. Prior study comparison: November 25, 2018, bilateral MG 3d screening mammo w/cad. November 06, 2016, bilateral MG screening mammo w CAD. The breast tissue is heterogeneously dense. This may lower the sensitivity of mammography. Finding #1: There is a 2.5cm and 1.0cm equal density (isodense), obscured oval mass in the upper outer quadrant of the right breast. Finding #2: There are typically benign calcifications in both breasts. ASSESSMENT: Incomplete: need additional imaging evaluation, BI-RAD 0 RECOMMENDATION: Special view mammogram and ultrasound of the right breast. [facility] will attempt to contact patient to return for supplemental views and ultrasound.
== END | disposition home or self-care (01) ==
LOC: RADMAMWWP 08:04
PROVIDERS: ATTEND Family Medicine
DX: Z12.31 Encounter for screening mammogram for malignant neoplasm of breast (principal); Z78.0 Asymptomatic menopausal state; C56.9 Malignant neoplasm of unspecified ovary
CPT/HCPCS: 77063; 77067; 77080

== ENCOUNTER → 2021-06-17 | Outpatient (CLI) | payer BC ==
--- NOTE | 2021-06-17 09:45 | MM ---
Reason for exam: additional evaluation requested from abnormal screening. Last mammogram was performed less than 1 month ago. History: Patient is postmenopausal and has history of ovarian cancer at age 53. Taking estrogen for 10 years. Taking progesterone for 10 years. Physical Findings: Nurse did not find any significant physical abnormalities on exam. MG 3D Work Up W/Cad RT Spot compression CC, spot compression MLO, and LM view(s) were taken of the right breast. Prior study comparison: June 02, 2021, bilateral MG 3d screening mammo w/cad. November 25, 2018, bilateral MG 3d screening mammo w/cad. Finding: There is a 1.0 x 2.5 cm equal density (isodense), lobulated mass in the upper outer quadrant of the right breast. These results were verbally communicated with the patient and result sheet given to the patient on 06/17/21. ASSESSMENT: Incomplete: need additional imaging evaluation, BI-RAD 0 RECOMMENDATION: Ultrasound of the right breast.
--- NOTE | 2021-06-17 09:47 | USB ---
Reason for exam: additional evaluation requested from abnormal screening. History: Patient is postmenopausal and has history of ovarian cancer at age 53. Taking estrogen for 10 years. Taking progesterone for 10 years. US Breast Workup Limited RT Right limited breast ultrasound including focal area of concern, retroareolar and axilla demonstrates several oval, cystic lesions measuring 0.6 x 0.4 x 0.2cm at 9 o'clock, 0.4 x 0.6 x 0.3cm at 9 o'clock, 1.6 x 1.8 x 1.3cm at 10 o'clock, 0.7 x 0.8 x 0.6cm at 10 o'clock and 0.4 x 0.4 x 0.4cm at 11 o'clock. These results were verbally communicated with the patient and result sheet given to the patient on 06/17/21. ASSESSMENT: Probably benign, BI-RAD 3 RECOMMENDATION: Follow-up diagnostic mammogram of the right breast in 6 months.
== END | disposition home or self-care (01) ==
LOC: RADMAMWWP 07:14
PROVIDERS: ATTEND Family Medicine
DX: N60.01 Solitary cyst of right breast (principal); N63.11 Unspecified lump in the right breast, upper outer quadrant
CPT/HCPCS: 77061; 77065

== ENCOUNTER → 2021-08-20 | Outpatient (CLI) | payer BC ==
[2021-08-20 13:35] LABS: African American GFR (CKD) >90 (>60 ml/min/1.73 sqM); Blood Urea Nitrogen 20 mg/dL (7-17); Non-African American GFR(CKD) 90 (>60 ml/min/1.73 sqM)
--- NOTE | 2021-08-20 15:16 | CT ---
EXAMINATION TYPE: CT ChestAbdPelvis w con DATE OF EXAM: 08/20/2021 COMPARISON: 07/17/2020 HISTORY: History of ovarian cancer CT DLP: 1861 mGycm CONTRAST: CT scan of the chest, abdomen and pelvis is performed with Oral Contrast and with IV Contrast, patien t injected with 100 ml mL of Isovue 300. CT Chest: LUNGS: The lungs are clear and free of infiltrate or atelectasis. No pulmonary nodule or mass is det ected. No pleural effusion or CT evidence of interstitial lung disease. MEDIASTINUM: Thoracic aorta is of normal caliber. The heart is not enlarged. No evidence for media stinal mass or adenopathy. HILAR STRUCTURES: No evidence for mass. No hilar adenopathy is appreciated. OTHER: No significant abnormality. CONTRAST CT ABDOMEN AND PELVIS FINDINGS: LIVER/GB: Hepatic steatosis. No calcified gallstones. No space occupying hepatic lesion. Biliary t ree is of normal caliber. PANCREAS: No inflammation. No distinct mass. SPLEEN: No splenic enlargement. No lesion seen. ADRENALS: No nodule. No thickening. KIDNEYS/BLADDER: No hydronephrosis. No nephrolithiasis. No disctinct renal mass. BOWEL: Normal appendix. Normal bowel caliber. No inflammation. GENITAL ORGANS: Hysterectomy and nephrectomy change. No evidence for recurrent or residual mass. LYMPH NODES: No greater than 1cm abdominal or pelvic lymph nodes are appreciated. AORTA: No significant abnormality. OSSEOUS STRUCTURES: No significant abnormality is seen. OTHER: No significant additional abnormality is seen. IMPRESSION: 1. No evidence for recurrent or metastatic ovarian cancer at this time.
[2021-08-20 21:00] LABS: Estradiol 38.7 pg/mL
[2021-08-22 21:09] LABS: Inhibin B <10 pg/mL
== END | disposition home or self-care (01) ==
LOC: RADCTMAIN 11:56
PROVIDERS: ATTEND Obstetrics & Gynecology
DX: Z85.43 Personal history of malignant neoplasm of ovary (principal)
CPT/HCPCS: 86304; 82565; 82670; 84520; 86336; 83520; 71260; 74177; Q9967

== ENCOUNTER → 2021-10-17 | Outpatient (CLI) | payer BC ==
--- NOTE | 2021-10-17 08:07 | MR ---
EXAMINATION TYPE: MR knee LT wo con DATE OF EXAM: 10/17/2021 COMPARISON: HISTORY: Pain right knee, evaluate quad tendon tear, tendinitis, rupture TECHNIQUE: Multiplanar, multisequence imaging of the right knee is performed without IV contrast. FINDINGS: MEDIAL MENISCUS: Anterior and posterior horns are intact without tear. LATERAL MENISCUS: Anterior and posterior horns are intact without tear. CRUCIATE LIGAMENTS: The anterior and posterior cruciate ligaments are intact and unremarkable. COLLATERAL LIGAMENTS: The medial collateral ligament and lateral collateral ligament complex are inta ct and unremarkable. EXTENSOR MECHANISM: Visualized quadriceps and patellar tendons are grossly intact. EFFUSION: No significant suprapatellar joint effusion. POPLITEAL CYST: Moderate size popliteal/busby cyst measuring 6.8 cm long axis sagittal image 25. TRICOMPARTMENT SPACES: Severe patellofemoral compartment joint space loss with mild/moderate spurring . Mild narrowing and spurring medial and lateral tibiofemoral compartments. CARTILAGE: Significant chondromalacia patella with thinning of articular cartilage along the posterio r patellar pole particularly lateral aspect. BONE MARROW SIGNAL: Areas of heterogeneous increased T2 signal along the posterolateral aspect of the patellar pole. Slight Lateral translation of the patella noted. OTHER: No additional significant abnormality is appreciated. IMPRESSION: 1. No significant focal tear in the quadriceps tendon. 2. Advanced patellofemoral joint arthropathy as detailed above. 3. Moderate sized popliteal cyst.
== END | disposition home or self-care (01) ==
LOC: RADMRIMAIN 07:20
PROVIDERS: ATTEND Orthopaedic Surgery
DX: M71.21 Synovial cyst of popliteal space [Baker], right knee (principal); M17.11 Unilateral primary osteoarthritis, right knee

== ENCOUNTER → 2022-01-08 | Outpatient (CLI) | payer BC ==
--- NOTE | 2022-01-08 12:29 | XR ---
Lumbosacral spine HISTORY: Low back pain 5 views of lumbosacral spine Correlation to CT scan chest abdomen pelvis 08/20/2021 Disc herniation change is present on the CT at L5-S1, there is gas density present within the spinal canal on CT extending to the neural foramen on the right suggesting possible sequestered fragment, co rrelate for right L5 or S1 radiculopathy. Vacuum phenomenon is present at L5-S1, there is associated loss of disc height. There is spondylosis. Lumbar vertebral bodies show preserved height and alignmen t. Sclerosis in the posterior elements of the lumbar spine consistent with facet arthropathy. No evid ent spondylolysis or spondylolisthesis. There is a spinal curvature present. Levoscoliosis is centere d at L3. Some loss of disc height also present L3-4. IMPRESSION: Degenerative disc disease and facet arthropathy. Consider lumbar MRI. Scoliosis.
== END | disposition home or self-care (01) ==
LOC: RADXRYALE 10:25
PROVIDERS: ATTEND Physician Assistant Medical
DX: M51.36 Other intervertebral disc degeneration, lumbar region (principal); M47.816 Spondylosis without myelopathy or radiculopathy, lumbar region; M41.86 Other forms of scoliosis, lumbar region
CPT/HCPCS: 72110

== ENCOUNTER → 2022-01-15 | Outpatient (CLI) | payer BC ==
[2022-01-15 15:18] LABS: T4, Free (Free Thyroxine) 1.34 ng/dL (0.800-1.800)
== END | disposition home or self-care (01) ==
LOC: LABWHC1 09:47
PROVIDERS: ATTEND Family Medicine
DX: E03.9 Hypothyroidism, unspecified (principal); N95.1 Menopausal and female climacteric states; Z79.890 Hormone replacement therapy
CPT/HCPCS: 36415; 82670; 84140; 84144; 84439; 84443; 84481

== ENCOUNTER → 2022-02-04 | Outpatient (CLI) | payer BC ==
--- NOTE | 2022-02-04 14:03 | MM ---
Reason for exam: follow-up at short interval from prior study. Last mammogram was performed 8 months ago. History: Patient is postmenopausal and has history of ovarian cancer at age 53. Taking estrogen for 10 years beginning at age 45. Taking progesterone for 10 years beginning at age 45. Physical Findings: A clinical breast exam by your physician is recommended on an annual basis and results should be correlated with mammographic findings. MG 3D Diag Mammo W/Cad RT CC, MLO, XCCL, and ML view(s) were taken of the right breast. Prior study comparison: June 17, 2021, right breast MG 3d work up w/cad RT. June 02, 2021, bilateral MG 3d screening mammo w/cad. The breast tissue is heterogeneously dense. This may lower the sensitivity of mammography. There is no discrete abnormality including area of concern right upper outer quadrant. No significant new findings when compared with previous films. Results were given to the patient verbally at the time of the exam. ASSESSMENT: Benign, BI-RAD 2 RECOMMENDATION: Return to routine screening mammogram schedule for both breasts. Back on schedule for May 2022.
== END | disposition home or self-care (01) ==
LOC: RADMAMWWP 12:54
PROVIDERS: ATTEND Family Medicine
DX: N63.10 Unspecified lump in the right breast, unspecified quadrant (principal); Z78.0 Asymptomatic menopausal state; Z85.43 Personal history of malignant neoplasm of ovary
CPT/HCPCS: 77061; 77065

== ENCOUNTER → 2022-02-13 | Outpatient (CLI) | payer BC ==
--- NOTE | 2022-02-13 17:03 | MR ---
EXAMINATION TYPE: MR lumbar spine wo con DATE OF EXAM: 02/13/2022 COMPARISON: None HISTORY: Low back pain CONTRAST: 0 mL intravenous Gadavist. TECHNIQUE: Multiplanar, multisequence images of the lumbar spine were acquired. FINDINGS: Cord terminates at the L1 level. L5-S1: Mild disc bulge is present with anterior thecal sac contact. Left S1 exiting nerve root appear s normal. There may be contact with the right exiting S1 nerve root. Correlate with radicular symptom s. L4-L5: No significant disc bulge or disc herniation. No spinal canal stenosis. No foraminal stenosi s. Neural foramen are patent.. L3-L4: No significant disc bulge or disc herniation. No spinal canal stenosis. No foraminal stenosi s. Neural foramen are patent.. L2-L3: No significant disc bulge or disc herniation. No spinal canal stenosis. No foraminal stenosi s. Neural foramen are patent.. L1-L2: No significant disc bulge or disc herniation. No spinal canal stenosis. No foraminal stenosi s. Neural foramen are patent.. T12-L1: No significant disc bulge or disc herniation. No spinal canal stenosis. No foraminal stenos is. Neural foramen are patent.. IMPRESSION: 1. There may be some mild disc bulging at the degenerative L5-S1 disc space. This may have contact wi th the right S1 nerve root. Correlate with radicular symptoms.
== END | disposition home or self-care (01) ==
LOC: RADMRIMAIN 12:00
PROVIDERS: ATTEND Family Medicine
DX: M54.50 Low back pain, unspecified (principal)
CPT/HCPCS: 72148

== ENCOUNTER 2023-01-26 19:51 | Emergency (ER) | payer BC ==
[2023-01-26 20:34] VITALS: RESP 20; TEMP 98.7
--- NOTE | 2023-01-26 22:17 | ED ---
Allergic Reaction HPI - General Source: patient, RN notes reviewed, old records reviewed Mode of arrival: wheelchair Limitations: no limitations - History of Present Illness MD Complaint: allergic reaction, facial swelling, other (Patient does feel like her throat and neck were closing up) -: days(s) Exposure: unknown Symptoms: rash Severity: mild Treatment Prior to Arrival: none Previous Allergy History: none <Baron Cole - Last Filed: 01/26/23 22:09> <Esau Laughlin - Last Filed: 01/27/23 01:32> - General Chief complaint: Recheck/Abnormal Lab/Rx Stated complaint: Allergic Reaction Time Seen by Provider: 01/26/23 21:47 - History of Present Illness Initial Comments: This is a 49-year-old female to the emergency department for evaluation. Patient presents today for evaluation of swelling of throat feels like Maybe closing up. Anxiety. Patient does admit to taking multiple medications a for upper respiratory infection runny nose cough and congestion including [id number] medications recent antibiotics. Patient presents today also after taking THC pill to help her sleep. Patient is taking the medication and then fell for anxious in for likely facility closing although patient states here without complaint no shortness of breath currently no surrounding any swelling or face or lips or tongue (Baron Cole) - Related Data Home Medications Medication Instructions Recorded Confirmed Ascorbic Acid [Vitamin C] 1,000 mg PO DAILY 11/24/18 11/28/18 Iodine 10,000 mcg PO DAILY 11/24/18 11/28/18 Niacin (Inositol Niacinate) 500 mg PO DAILY 11/24/18 11/28/18 [Niacin 500 mg Capsule] Pregnenolone 160 mg PO DAILY 11/24/18 11/28/18 Progesterone, Micronized 250 mg PO DAILY 11/24/18 11/28/18 [Progesterone] Thyroid,Pork [Abie Thyroid] 180 mg PO Q48H 11/24/18 11/28/18 Thyroid,Pork [Abie Thyroid] 270 mg PO Q48H 11/24/18 11/28/18 estradioL [Estradiol] 8 mg PO BID 11/24/18 11/28/18 Cholecalciferol [Vitamin D3 (25 1,000 unit PO DAILY 11/28/18 11/28/18 Mcg = 1000 Iu)] Previous Rx's Medication Instructions Recorded Acetaminophen-Codeine 300-30mg 1 - 2 each PO Q4HR PRN #30 tab 11/30/18 [Tylenol w/codeine #3] Ibuprofen [Motrin] 600 mg PO Q6HR PRN #60 tab 11/30/18 Allergies Allergy/AdvReac Type Severity Reaction Status Date / Time No Known Allergies Allergy Verified 01/26/23 20:34 Review of Systems ROS Other: All systems not noted in ROS Statement are negative. <Baron Cole - Last Filed: 01/26/23 22:09> ROS Other: All systems not noted in ROS Statement are negative. <Esau Laughlin - Last Filed: 01/27/23 01:32> ROS Statement: Those systems with pertinent positive or pertinent negative responses have been documented in the HPI. Past Medical History Past Medical History: GERD/Reflux, Thyroid Disorder Additional Past Medical History / Comment(s): UTERINE FIBROIDS. History of Any Multi-Drug Resistant Organisms: None Reported Additional Past Surgical History / Comment(s): PLANTAR FASCITIS (JANUARY 2018) Past Anesthesia/Blood Transfusion Reactions: No Reported Reaction Past Psychological History: No Psychological Hx Reported Smoking Status: Never smoker Past Alcohol Use History: Occasional Past Drug Use History: None Reported - Past Family History Mother Family Medical History: CVA/TIA, Hypertension <Baron Cole - Last Filed: 01/26/23 22:09> General Exam Limitations: no limitations General appearance: alert, in no apparent distress Head exam: Present: atraumatic, normocephalic, normal inspection Eye exam: Present: normal appearance, PERRL, EOMI. Absent: scleral icterus, conjunctival injection, periorbital swelling ENT exam: Present: normal exam, mucous membranes moist Neck exam: Present: normal inspection. Absent: tenderness, meningismus, lymphadenopathy Respiratory exam: Present: normal lung sounds bilaterally. Absent: respiratory distress, wheezes, rales, rhonchi, stridor Cardiovascular Exam: Present: regular rate, normal rhythm, tachycardia, normal heart sounds. Absent: systolic murmur, diastolic murmur, rubs, gallop, clicks GI/Abdominal exam: Present: soft, normal bowel sounds. Absent: distended, tenderness, guarding, rebound, rigid Extremities exam: Present: normal inspection, full ROM, normal capillary refill. Absent: tenderness, pedal edema, joint swelling, calf tenderness Back exam: Present: normal inspection Neurological exam: Present: alert, oriented X3, CN II-XII intact Psychiatric exam: Present: normal affect, normal mood Skin exam: Present: warm, dry, intact, normal color. Absent: rash <Baron Cole - Last Filed: 01/26/23 22:09> Course <Baron Cole - Last Filed: 01/26/23 22:09> Vital Signs 01/26/23 01/26/23 20:30 22:10 Temperature 98.7 F Pulse Rate 105 H 98 Respiratory 20 Rate Blood Pressure 189/97 169/85 O2 Sat by Pulse 99 97 Oximetry - Reevaluation(s) Reevaluation #1: 01/26/23 22:15 Medical record is reviewed (Baron Cole) Reevaluation #2: 01/26/23 22:16 patient symptoms continued to improve (Baron Cole) Medical Decision Making - EKG Data -: EKG Interpreted by Me (EKG is sinus 78 IN 194 QRS and QT) <Baron Cole - Last Filed: 01/26/23 22:09> <Esau Laughlin - Last Filed: 01/27/23 01:32> - Medical Decision Making 57 female to the emergency department for evaluation patient presents today for evaluation of ALLERGIC reaction throughout swelling to be antibiotic related which she has stopped, patient given steroids here could be anxiety related to THC but patient is no oropharyngeal swelling no shortness breath he can be discharged home (Baron Cole) The patient was signed out to me by Dr. Cole. The patient was signed out pending reevaluation for possible discharge home. Was pt. sent in by a medical professional or institution (, PA, [employer], urgent care, hospital, or correction...) When possible be specific @ -No Did you speak to anyone other than the patient for history (EMS, parent, family, police, friend...)? What history was obtained from this source @ -No Did you review nursing and triage notes (agree or disagree)? Why? @ -I reviewed and agree with nursing and triage notes Were old charts reviewed (outside hosp., previous admission, EMS record, old EKG, old radiological studies, urgent care reports/EKG's, correction records)? Report findings @ -No old charts were reviewed Differential Diagnosis (chest pain, altered mental status, abdominal pain women, abdominal pain men, vaginal bleeding, weakness, fever, dyspnea, syncope, headache, dizziness, GI bleed, back pain, seizure, CVA, palpatations, mental health)? @ -Acute ALLERGIC reaction, cannabinoid reaction, pharyngitis EKG interpreted by me (3pts min.). @ -As above X-rays interpreted by me (1pt min.). @ -None done CT interpreted by me (1pt min.). @ -None done U/S interpreted by me (1pt. min.). @ -None done What testing was considered but not performed or refused? (CT, X-rays, U/S, labs)? Why? @ -None What meds were considered but not given or refused? Why? @ -None Did you discuss the management of the patient with other professionals (professionals i.e. , PA, [employer], lab, RT, psych nurse, adoption social worker, primary clinician, teacher, artillery officer, wrapper caser)? Give summary @ -No Was smoking cessation discussed for >3mins.? @ -No Was critical care preformed (if so, how long)? @ -No Were there social determinants of health that impacted care today? How? (Homelessness, low income, unemployed, alcoholism, drug addiction, transportation, low edu. Level, literacy, decrease access to med. care, [place] [facility], rehab)? @ -No Was there de-escalation of care discussed even if they declined (Discuss DNR or withdrawal of care, Hospice)? DNR status @ -No What co-morbidities impacted this encounter? (DM, HTN, Smoking, COPD, CAD, Cancer, CVA, ARF, Chemo, Hep., AIDS, mental health diagnosis, sleep apnea, morbi d obesity)? @ -None Was patient admitted / discharged? Hospital course, mention meds given and route, prescriptions, significant lab abnormalities, going to OR and other pertinent info. @ -Was initially seen by Dr. Cole. Please see his note for HPI. The patient was signed out pending reevaluation. On reevaluation, the patient was resting comfortably without any acute distress. The patient did have any further symptoms and was deemed stable for discharge. The patient had been given a prescription for steroids by her primary care physician and she was recommended to take this medication. She was also advised to not take the azithromycin. The patient was also advised to take Benadryl for any symptoms and to report back to the emergency department if they became acutely worse. The patient was agreeable to this and all of her questions were answered. The patient was discharged home in stable condition. Undiagnosed new problem with uncertain prognosis? @ -No Drug Therapy requiring intensive monitoring for toxicity (Heparin, Nitro, Insulin, Cardizem)? @ -No Were any procedures done? @ -No Diagnosis/symptom? @ -Allergic reaction, NOS Acute, or Chronic, or Acute on Chronic? @ -Acute Uncomplicated (without systemic symptoms) or Complicated (systemic symptoms)? @ -Uncomplicated Side effects of treatment? @ -No Exacerbation, Progression, or Severe Exacerbation? @ -No Poses a threat to life or bodily function? How? (Chest pain, USA, VT, pneumonia, PE, COPD, DKA, ARF, appy, cholecystitis, CVA, Diverticulitis, Homicidal, Suicidal, threat to staff... and all critical care pts) @ -No (Esau Laughlin) Disposition Is patient prescribed a controlled substance at d/c from ED?: No Time of Disposition: 22:15 <Baron Cole - Last Filed: 01/26/23 22:09> Is patient prescribed a controlled substance at d/c from ED?: No Time of Disposition: 01:00 <Esau Laughlin - Last Filed: 01/27/23 01:32> Clinical Impression: Allergic reaction, Anxiety Disposition: HOME SELF-CARE Condition: Stable Instructions (If sedation given, give patient instructions): Allergies (ED), General Allergic Reaction (ED) Referrals: Eduar Roy DO [Primary Care Provider] - 1-2 days
[2023-01-27 01:23] VITALS: PULSE 75
[2023-01-27 01:27] VITALS: BP 169/78
== END 2023-01-27 01:27 | disposition home or self-care (01) ==
LOC: EC 19:51
DX: T78.40XA Allergy, unspecified, initial encounter (principal); E07.9 Disorder of thyroid, unspecified; F41.9 Anxiety disorder, unspecified; Z79.890 Hormone replacement therapy
CPT/HCPCS: 99283

== ENCOUNTER → 2023-09-09 | Outpatient (CLI) | payer BC ==
--- NOTE | 2023-09-09 07:56 | US ---
EXAMINATION TYPE: US abdomen limited DATE OF EXAM: 09/09/2023 COMPARISON: CT 2020 CLINICAL INDICATION: Female, 57 years old with history of R10.11 ruq pain; Intermittent RUQ pain and N/V x 18 months TECHNIQUE: Multiple sonographic images of the right upper quadrant are obtained. FINDINGS: EXAM MEASUREMENTS: Liver Length: 14.0 cm Gallbladder Wall: 0.3 cm CBD: 0.6 cm Right Kidney: 11.5 x 4.2 x 4.9 cm Pancreas: visualized portions wnl, tail limited by overlying midline bowel gas Liver: limited visualization, scanned intercostally, course echotexture Gallbladder: 1.1cm non mobile stone within neck, 2 small echogenic foci along posterior wall Evidence for sonographic Castillo's sign: no CBD: borderline dilated Right Kidney: visualized portions wnl, inferior pole limited by overlying bowel gas IMPRESSION: 1. Cholelithiasis.
--- NOTE | 2023-09-09 17:27 | MM ---
Reason for Exam: Screening (asymptomatic). Last mammogram was performed 2 year(s) and 3 month(s) ago. Patient History: Menarche at age 11. First Full-Term at age 25. Left ovary removed at age 53. Right ovary removed at age 53. Hysterectomy at age 53. Postmenopausal. Ovarian cancer, age 53. Currently using Estrogen, beginning at age 45 for 10 years. Currently using Progesterone, beginning at age 45 for 10 years. Sister had breast cancer, age 55. Risk Values: Isaura 5 year model risk: 2.6%. NCI Lifetime model risk: 14.6%. Prior Study Comparison: 06/02/2021 Bilateral Screening Mammogram, [facility]. 06/17/2021 Right Diagnostic Mammogram, [facility]. 02/04/2022 Right Diagnostic Mammogram, [facility]. Tissue Density: The breast tissue is heterogeneously dense. This may lower the sensitivity of mammography. Findings: Analyzed By CAD. Pattern appears stable. No significant interval change. No suspicious groups of microcalcifications, spiculated or lobular masses, architectural distortion or other secondary signs of malignancy are mammographically apparent. Overall Assessment: Benign, BI-RAD 2 Management: Screening Mammogram of both breasts in 1 year. A negative mammogram report should not preclude additional follow up of suspicious palpable abnormalities. Patient should continue monthly self breast exam. A clinical breast exam by your physician is recommended on an annual basis and results should be correlated with mammographic findings. Electronically signed and approved by: Anthony Rojas D.O. Radiologis
== END | disposition home or self-care (01) ==
LOC: RADMAMWWP 06:49
PROVIDERS: ATTEND Family Medicine
DX: Z12.31 Encounter for screening mammogram for malignant neoplasm of breast (principal); K80.20 Calculus of gallbladder without cholecystitis without obstruction; Z78.0 Asymptomatic menopausal state; Z80.3 Family history of malignant neoplasm of breast
CPT/HCPCS: 76705; 77063; 77067

== ENCOUNTER 2024-05-09 07:31 | Day surgery (SDC) | payer BC ==
[~2024-05-09 07:31] MED LIST changes: -DEXAMETHASONE SOD PHOSPHATE 10 MG/ML 1 ML VIAL IV ONE; -HYDROmorphone 0.5 MG/0.5 ML SYRINGE IVP PRN; -LACTATED RINGERS 1,000 ML IV SCH; +LIDOCAINE 1% (10MG/ML) FOR IV START INTRADERMA PRN; -MIDAZOLAM (PF) 2 MG/2 ML VIAL IV PRN; -ONDANSETRON 4 MG/2 ML VIAL IVP ONE; -SCOPOLAMINE 1.5MG/72HR PATCH TRANSDERM ONE
[2024-05-09 07:46] VITALS: TEMP 98.1
[2024-05-09] MEDS: LACTATED RINGERS 1,000 ML IV SCH (07:57)
[2024-05-09] MEDS: IV FLUID CONTINUATION 1,000 ML IV ONE (07:57)
[2024-05-09] MEDS ORDERED: fentaNYL (PF) 50 MCG/ML 2 ML AMP ONE (08:10)
[2024-05-09] MEDS ORDERED: LIDOCAINE 2% (PF) 20 MG/ML 5 ML VIAL ONE (08:10)
[2024-05-09] MEDS ORDERED: PROPOFOL 10 MG/ML 20 ML VIAL IV ONE (08:10)
--- NOTE | 2024-05-09 08:46 | P.PCN ---
Date of Procedure: 05/09/24 Procedure(s) Performed: PREOPERATIVE DIAGNOSIS: Epigastric pain, screening, family history of colon cancer in father POSTOPERATIVE DIAGNOSIS: Gastritis, melanosis coli, ascending colon polyp x 3, rectal polyp PROCEDURE: 1. EGD with biopsy 2. Colonoscopy with snare polypectomy ANESTHESIA: [employer] SURGEON: Yaya Albarran M.D. SPECIMENS: Antrum, polyps ENDOSCOPIC PROCEDURE: The patient was on the endoscopy table in the left decubitus position. The Olympus gastroscope was inserted into the oropharynx and passed under direct visualization to the region of the third portion of the duodenum. From that point the scope was slowly withdrawn inspecting all surfaces carefully. There were no neoplastic inflammatory or polypoid lesions throughout the duodenum. The pylorus was widely patent. The stomach was carefully inspected. There was mild gastritis present. A biopsy of the antrum took place to rule out H. pylori. Retroflexion revealed a normal hiatus. The esophagus was then carefully examined. There were no neoplastic inflammatory or polypoid lesions throughout the visualized esophagus. The patient was kept on the endoscopy table in the left decubitus position. The Olympus colonoscope was inserted into the anus and passed under direct visualization to the base of the cecum. The appendiceal orifice was visualized. From that point the scope was slowly withdrawn inspecting all surfaces carefully. The patient had severe melanosis coli to the point that it was difficult to visualize the lumen well during this endoscopy. I was able to find 3 pink-colored polyps in the ascending colon. These were sessile and measured about 8 mm in size. These were removed using the snare with cautery technique. Transverse colon descending sigmoid colon appeared normal. In the rectum there was noted to be a small polyp and removed using the snare with cautery technique as well. There was no definite diverticulosis seen. Digital rectal examination was normal. The patient was taken to the recovery room in stable condition per anesthesia guidelines. RECOMMENDATIONS: Await biopsy results. 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 Would recommend short-term follow-up after stopping herbal stool softeners to get a better view of her colon. Recommend follow-up colonoscopy 2 to 3 years.
[2024-05-09 09:13] VITALS: BP 134/74; PULSE 56; RESP 18
== END 2024-05-09 09:57 ==
LOC: ORWHC2ENDO 07:31
PROVIDERS: ATTEND Surgery
DX: D12.2 Benign neoplasm of ascending colon (principal); K62.1 Rectal polyp; E07.9 Disorder of thyroid, unspecified; K21.9 Gastro-esophageal reflux disease without esophagitis; D25.9 Leiomyoma of uterus, unspecified; F17.200 Nicotine dependence, unspecified, uncomplicated; Z79.899 Other long term (current) drug therapy
CPT/HCPCS: 88305; 45385; 43239; J3010; J2704; J2001

== ENCOUNTER 2024-07-21 10:09 | Day surgery (SDC) | payer BC ==
[2024-07-14 14:47] VITALS: BMI 30.7
[~2024-07-21 10:09] MED LIST changes: +droPERidol 5 MG/2 ML VIAL IVP ONE
--- NOTE | 2024-07-21 10:10 | P.GSHP ---
History of Present Illness H&P Date: 07/21/24 Chief Complaint: Chronic cholecystitis 58-year-old female seen in the office in April. Patient is had gallbladder attacks for the last few years. Approximately 8 different episodes. Pain in the right upper quadrant with radiation to the back. Worse with greasy foods. Patient had upper endoscopy and colonoscopy performed in April. No malignancy seen. Here today for elective cholecystectomy. Past Medical History Past Medical History: GERD/Reflux, Thyroid Disorder Additional Past Medical History / Comment(s): UTERINE FIBROIDS, "sensitive" digestive system History of Any Multi-Drug Resistant Organisms: None Reported Past Surgical History: Hysterectomy Additional Past Surgical History / Comment(s): PLANTAR FASCIITIS SURGERY Past Anesthesia/Blood Transfusion Reactions: No Reported Reaction Past Psychological History: No Psychological Hx Reported Smoking Status: Never smoker Past Alcohol Use History: Occasional Additional Past Alcohol Use History / Comment(s): . Past Drug Use History: None Reported - Past Family History Mother Family Medical History: CVA/TIA, Hypertension Father Family Medical History: Cancer, Hyperlipidemia, Hypertension Additional Family Medical History / Comment(s): colon cancer Medications and Allergies Home Medications Medication Instructions Recorded Confirmed Type Levothyroxine Sodium 137 mcg PO QAM 05/05/24 07/14/24 History Nf-Estradiol Dose Unk 1 dose .ROUTE BID 07/14/24 07/14/24 History Nf-Pregnenolone 150 mg PO BID 07/14/24 07/14/24 History Progesterone, Micronized 275 mg PO DAILY 07/14/24 07/14/24 History [Progesterone] Allergies Allergy/AdvReac Type Severity Reaction Status Date / Time No Known Allergies Allergy Verified 07/14/24 14:31 Surgical - Exam Physical exam: General: Well-developed, well-nourished HEENT: Normocephalic, sclerae nonicteric Abdomen: Nontender, nondistended Extremities: No edema Neuro: Alert and oriented Assessment and Plan (1) Chronic cholecystitis Narrative/Plan: Will proceed with laparoscopic, possible open cholecystectomy at this time. Risks of bleeding, infection, bile leak, bile duct injury, retained common bile duct stone, trocar injury, conversion to an open procedure, hernia, anesthesia related complications were reviewed. The patient understands and wishes to proceed. Status: Acute Code(s): K81.1 - CHRONIC CHOLECYSTITIS SNOMED Code(s): 50120890
[2024-07-21] MEDS: ONDANSETRON 4 MG/2 ML VIAL IVP ONE (10:46)
[2024-07-21] MEDS: LACTATED RINGERS 1,000 ML IV SCH (10:47)
[2024-07-21] MEDS: DEXAMETHASONE SOD PHOSPHATE 4 MG/ML 1 ML VIAL IV ONE (10:47)
[2024-07-21] MEDS: IV FLUID CONTINUATION 1,000 ML IV ONE (10:49)
[2024-07-21] MEDS: HEPARIN SODIUM,PORCINE 5,000 UNIT/ML 1 ML VIAL SQ STA (11:33)
[2024-07-21] MEDS ORDERED: NEOSTIGMINE 1 MG/ML 10 ML VIAL ONE (11:55)
[2024-07-21] MEDS ORDERED: PROPOFOL 10 MG/ML 20 ML VIAL IV ONE (11:55)
[2024-07-21] MEDS ORDERED: MIDAZOLAM 2 MG/2 ML VIAL ONE (11:55)
[2024-07-21] MEDS ORDERED: ROCURONIUM 10 MG/ML (5 ML VIAL) IV ONE (11:55)
[2024-07-21] MEDS ORDERED: KETOROLAC 15 MG/ML 1 ML VIAL ONE (11:55)
[2024-07-21] MEDS ORDERED: GLYCOPYRROLATE 0.2 MG/ML 2 ML VIAL ONE (11:55)
[2024-07-21] MEDS ORDERED: fentaNYL (PF) 50 MCG/ML 2 ML AMP ONE (11:55)
[2024-07-21] MEDS ORDERED: LIDOCAINE 1% INJ 10MG/ML (20 ML MDV) ONE (11:55)
[2024-07-21] MEDS: LIDOCAINE 1%-EPI 1:100,000 20 ML VIAL SQ ONE (12:23)
[2024-07-21] MEDS: LACTATED RINGERS 1,000 ML IV ONE (13:10)
[2024-07-21] MEDS ORDERED: ACETAMINOPHEN TAB 325 MG TAB PO SCH (13:15)
--- NOTE | 2024-07-21 13:15 | P.OP ---
Date of Procedure: 07/21/24 Procedure(s) Performed: PREOPERATIVE DIAGNOSIS: Chronic cholecystitis POSTOPERATIVE DIAGNOSIS: Same PROCEDURE: Laparoscopic cholecystectomy SURGEON: Deion EBL: Minimal see anesthesia record ANESTHESIA: Gen. COMPLICATIONS: None OPERATIVE PROCEDURE: The patient was brought and placed on the operating room table in the supine position. The patient was placed under general anesthesia at that time. The abdomen was prepped and draped in the usual sterile fashion. A small vertical infraumbilical incision was made. The fascia was grasped with the Casper forceps. The fascia was retracted anteriorly. The Veress needle was advanced into the peritoneal cavity. The saline drop test was normal. Insufflation took place up to 15 mmHg. A 5 mm optical trocar was advanced and the peritoneal cavity. 2 additional 5 mm trochars were placed in the right upper quadrant under direct visualization. A 12 mm trocar was advanced into the epigastric incision site. The gallbladder was distended and chronically inflamed. There was some of the gastro hepatic and pericolonic fat that was adherent to the gallbladder. This was lysed using both blunt dissection and cautery. The gallbladder was gradually able to be retracted superiorly and laterally. The peritoneum overlying the infundibulum was bluntly dissected. The patient's cystic duct was visualized. The junction between the cystic duct common and hepatic duct was identified. The critical view of safety was achieved after blunt dissection. The cystic duct was then divided after placement of 3 12 mm clips on the patient's side and one on the specimen side. The cystic artery was identified and clipped as well. A small vessel was seen along the gallbladder fossa and clipped as well. The gallbladder was then removed from the liver bed using electrocautery. The gallbladder was then removed from the epigastric trocar site with an Endo Catch bag. The gallbladder fossa was irrigated with saline. There was no evidence of any bleeding or biliary drainage seen. The fascia at the 12 millimeter site was closed using a WinsomeMatilde 0 Vicryl stitch. The trochars were then removed. The skin at all 4 sites was closed using a 4-0 Monocryl stitch. Skin glue was utilized on the incision sites. At the end of this procedure the sponge and needle counts were correct. DISPOSITION: Stable to the recovery room
[2024-07-21 13:23] VITALS: TEMP 97.2
[2024-07-21] MEDS: MEPERIDINE 50 MG/ML SYRINGE IVP STA (13:41)
[2024-07-21] MEDS: HYDROmorphone 0.5 MG/0.5 ML SYRINGE IVP PRN (14:19)
[2024-07-21 14:58] VITALS: RESP 16
[2024-07-21 16:14] VITALS: BP 161/88; PULSE 76
[2024-07-21] MEDS ORDERED: IBUPROFEN 600 MG TAB PO SCH (16:15)
== END 2024-07-21 16:34 | disposition home or self-care (01) ==
LOC: OR 10:09
PROVIDERS: ATTEND Surgery
DX: K81.1 Chronic cholecystitis
CPT/HCPCS: 88304